=== PATIENT | female | born 1975 | race Caucasian/White ===

== ENCOUNTER → 2016-07-14 | Outpatient (CLI) | payer OTHER ==
--- NOTE | 2016-07-14 12:27 | REPMRS ---
Patient History The patient states she had a clinical breast exam in 07/2016. Family history of breast cancer in mother at age 59, breast cancer in maternal aunt at age 44, and breast cancer in paternal grandmother at age 45. Digital Woman Screen Mammo: July 14, 2016 - Exam #: [id number] Bilateral CC and MLO view(s) were taken. Technologist: Shantell Michael, Technologist Prior study comparison: May 23, 2015, digital woman screen mammo performed at [facility]. March 08, 2014, digital woman screen mammo performed at [facility]. January 18, 2013, right breast digital mammo diagnostic bilateral, performed at [facility]. FINDINGS: The breast tissue is heterogeneously dense. This may lower the sensitivity of mammography. There is a moderate amount of heterogeneously dense fibroglandular tissue which is fairly symmetric. There is no interval development of dominant mass, architectural distortion, or clustered microcalcification typical of malignancy. There has been no change in the appearance of the mammogram from the prior studies. ASSESSMENT: BI-RADS/ACR category 1 mammogram. Negative. Recommendation Routine screening mammogram of both breasts in 1 year (for women over age 40). This mammogram was interpreted with the aid of an FDA-approved computer-aided dectection system. Electronically Signed By: Deacon Ricketts MD 07/14/16 [id number]
== END ==
LOC: M WHC 11:24
PROVIDERS: ATTEND Nurse Practitioner Women's Health
DX: Z12.31 Encounter for screening mammogram for malignant neoplasm of breast (principal)

== ENCOUNTER → 2016-07-14 | Outpatient (REF) | payer OTHER | LOC: M SFHCWAGY 11:46 | PROVIDERS: ATTEND Nurse Practitioner Women's Health ==

== ENCOUNTER → 2016-08-28 | Outpatient (REF) | payer OTHER | LOC: M SFHCLERA 12:28 | PROVIDERS: ATTEND Nurse Practitioner Family | DX: R30.0 Dysuria (principal) ==

== ENCOUNTER → 2016-08-30 | Outpatient (REF) | payer OTHER | LOC: M SFHCLERA 11:01 | PROVIDERS: ATTEND Physician Assistant | DX: R50.9 Fever, unspecified (principal) ==

== ENCOUNTER → 2017-06-09 | Outpatient (REF) | payer OTHER | LOC: M SFHCLERA 12:03 | DX: R30.0 Dysuria (principal) ==

== ENCOUNTER → 2017-08-11 | Outpatient (REF) | payer OTHER | LOC: M SFHCWAGY 15:58 | DX: Z12.4 Encounter for screening for malignant neoplasm of cervix (principal) | CPT/HCPCS: G0123 ==

== ENCOUNTER → 2017-08-11 | Outpatient (CLI) | payer OTHER | LOC: M WHC 11:12 | DX: Z12.31 Encounter for screening mammogram for malignant neoplasm of breast (principal); Z12.4 Encounter for screening for malignant neoplasm of cervix | CPT/HCPCS: G0123 ==

== ENCOUNTER → 2017-09-20 | Outpatient (REF) | payer OTHER | LOC: M SFHCLERA 20:42 | DX: R30.0 Dysuria (principal) | CPT/HCPCS: 87086 ==